=== PATIENT | male | born 1985 | race Caucasian/White ===

== ENCOUNTER 2020-03-12 14:44 | Emergency (ER) | payer MEDICAID ==
[~2020-03-12] VITALS: Ht 177.8 cm; Wt 164.0 kg
[2020-03-12 15:51] LABS: BASOPHILS # (AUTO) 0.02 x10^3/uL (0-0.1); BASOPHILS % (AUTO) 0 % (0-1); EOSINOPHILS # (AUTO) 0.16 x10^3/uL (0-0.4); EOSINOPHILS % (AUTO) 2 % (1-7); LYMPHOCYTES # (AUTO) 1.43 x10^3/uL (1-3.4); LYMPHOCYTES % (AUTO) 16 % (22-44); MD NO; MEAN CORPUSCULAR HEMOGLOBIN 28.8 pg (27.5-34.5); MEAN CORPUSCULAR HGB CONC 31.8 g/dL (33.2-36.2); MEAN CORPUSCULAR VOLUME 90.8 fL (81-97); MEAN PLATELET VOLUME 8.4 fL (7.4-10.4); MONOCYTES # (AUTO) 0.93 x10^3/uL (0.2-0.8); MONOCYTES % (AUTO) 10 % (2-9); NEUTROPHILS # (AUTO) 6.41 x10^3/uL (1.8-6.8); NEUTROPHILS % (AUTO) 72 % (42-75); PLATELET COUNT 243 x10^3/uL (130-400); RED BLOOD COUNT 5.37 x10^6/uL (4.38-5.82)
[2020-03-12] MEDS ORDERED: SODIUM CHLORIDE FLUSH 10ML SYR IVF ONE (16:00)
[2020-03-12 16:02] LABS: ALBUMIN 2.6 g/dL (3.4-5.0); ANION GAP 7 mmol/L (5-15); CALCIUM 8.5 mg/dL (8.5-10.1); CHLORIDE 99 mmol/L (98-107)
[2020-03-12 16:07] LABS: ALANINE AMINOTRANSFERASE 25 U/L (12-78); ALKALINE PHOSPHATASE 150 U/L (45-117); BILIRUBIN,TOTAL 0.9 mg/dL (0.2-1.0); TOTAL PROTEIN 6.8 g/dL (6.4-8.2)
--- NOTE | 2020-03-12 16:15 | NUR ---
BILAT LEGS PAINFUL AND SWOLLEN X 1 MONTH. STARTED WITH RIGHT FOOT, SPREAD TO LEFT FOOT, THEN TRAVELED UP BILAT LEGS. PRIMARY CARE SENT PT HERE. DENIED ANY MEDICAL HX. REPIORTS DRINKING 4 BEERS A DAY. MOTHER AT BEDSIDE. PT IN BED WITH CONT SPO2, BP Q 30 MIN, SIDE RAILS UP X2, CALL LIGHT IN REACH. WENT OVER PLAN OF CARE FROM ORDER LIST, AGREES TO PLAN. US/XRAY DONE, BLOOD SENT TO LAB.
[2020-03-12] MEDS ORDERED: FUROSEMIDE 40 MG/4 ML IV ONE (16:30)
[2020-03-12] MEDS ORDERED: FUROSEMIDE 40 MG/4 ML ONE (16:57)
[2020-03-12 17:42] VITALS: BP 135/74
== END 2020-03-12 17:47 | disposition home or self-care (01) ==
LOC: ED 16:02
DX: R60.0 Localized edema (principal); I10 Essential (primary) hypertension; R73.09 Other abnormal glucose; R79.89 Other specified abnormal findings of blood chemistry; R10.9 Unspecified abdominal pain; R16.1 Splenomegaly, not elsewhere classified; R09.02 Hypoxemia; F17.290 Nicotine dependence, other tobacco product, uncomplicated
CPT/HCPCS: 36415; 71046; 76700; 80053; 83880; 85025; 93005; 96374; 99285; 99406; J1940

== ENCOUNTER 2020-03-23 14:48 | Inpatient (IN) | payer MEDICAID ==
[~2020-03-23] VITALS: Ht 177.8 cm; Wt 146.1 kg
[~2020-03-23 14:48] MED LIST: MIDAZOLAM 1 MG/ML, 5ML ONE; NALOXONE 0.4 MG/ML, 1ML ONE; NALOXONE 1 MG/ML, 2ML ONE; SUCCINYLCHOLINE 20 MG/ML, 10ML ONE
[2020-03-23] MEDS ORDERED: FURO40TA6 PO (15:00)
--- NOTE | 2020-03-23 15:04 | NUR ---
PULSE OX 80% RA. PT DENIES RECENT FEVER, COUGH, UTI SX, COVID EXPOSURE, COVID TESTING, LUNG PROBLEMS. O2 WILL BE APPLIED & TITRATED. PT REPORTS TESTICULAR SWELLING. DENIES STD, RECENT SEXUAL ACTIVITY. PER MOM, PT WAS HERE LAST WEEK FOR FLUID RETENTION.
[2020-03-23] MEDS ORDERED: DIPH25CA61 PO (15:29)
[2020-03-23] MEDS ORDERED: FAMO10TA31 PO (15:29)
[2020-03-23 15:41] LABS: BASOPHILS # (AUTO) 0.06 x10^3/uL (0-0.1); BASOPHILS % (AUTO) 1 % (0-1); EOSINOPHILS # (AUTO) 0.09 x10^3/uL (0-0.4); EOSINOPHILS % (AUTO) 1 % (1-7); LYMPHOCYTES # (AUTO) 1.04 x10^3/uL (1-3.4); LYMPHOCYTES % (AUTO) 11 % (22-44); MD NO; MEAN CORPUSCULAR HEMOGLOBIN 28.1 pg (27.5-34.5); MEAN CORPUSCULAR HGB CONC 31.4 g/dL (33.2-36.2); MEAN CORPUSCULAR VOLUME 89.5 fL (81-97); MEAN PLATELET VOLUME 8.6 fL (7.4-10.4); MONOCYTES # (AUTO) 1.05 x10^3/uL (0.2-0.8); MONOCYTES % (AUTO) 11 % (2-9); NEUTROPHILS # (AUTO) 7.11 x10^3/uL (1.8-6.8); NEUTROPHILS % (AUTO) 76 % (42-75); PLATELET COUNT 284 x10^3/uL (130-400); RED BLOOD COUNT 5.16 x10^6/uL (4.38-5.82); RED CELL DISTRIBUTION WIDTH 16.3 % (9.4-14.8)
[2020-03-23 15:47] LABS: ALANINE AMINOTRANSFERASE 25 U/L (12-78); ALBUMIN 2.5 g/dL (3.4-5.0); ANION GAP 6 mmol/L (5-15); CALCIUM 7.9 mg/dL (8.5-10.1); CHLORIDE 98 mmol/L (98-107); INTERNATIONAL NORMALIZED RATIO 1.33 (0.93-1.1); PROTHROMBIN TIME 14.1 Seconds (9.6-11.5)
[2020-03-23 15:49] LABS: ALKALINE PHOSPHATASE 132 U/L (45-117); BILIRUBIN,TOTAL 0.6 mg/dL (0.2-1.0); TOTAL PROTEIN 6.4 g/dL (6.4-8.2)
[2020-03-23] MEDS ORDERED: FUROSEMIDE 40 MG/4 ML IV ONE (16:00)
[2020-03-23] MEDS ORDERED: FUROSEMIDE 40 MG/4 ML ONE (16:14)
--- NOTE | 2020-03-23 17:10 | NUR ---
LASIX GIVEN PER EMAR
--- NOTE | 2020-03-23 17:12 | NUR ---
PT REPORT TO JESSIE KAISER RN.
[2020-03-23] MEDS ORDERED: SODIUM CHLORIDE FLUSH 10ML SYR IVF PRN (17:30)
--- NOTE | 2020-03-23 17:50 | NUR ---
PER AWILDA RN, PT AMBULATORY TO & FROM [facility] W/OUT INCIDENT; PT WAS ABLE TO VOID.
[2020-03-23] MEDS ORDERED: ENOXAPARIN 40 MG/0.4 ML ONE (18:18)
[2020-03-23] MEDS ORDERED: NICOTINE 7 MG/24 HR PATCH.TD24 ONE (18:18)
[2020-03-23] MEDS: NICOTINE 7 MG/24 HR PATCH.TD24 TD SCH (18:20)
[2020-03-23] MEDS: ENOXAPARIN 40 MG/0.4 ML SQ SCH (18:22)
--- NOTE | 2020-03-23 18:22 | NUR ---
LOVENOX GIVEN PER EMAR. PT REFUSED NICOTINE PATCH, AT THIS TIME.
--- NOTE | 2020-03-23 18:24 | NUR ---
O2 SAT 84% RA. O2 2LNC APPLIED. 400ML URINE IN URINAL.
--- NOTE | 2020-03-23 19:36 | NUR ---
PT REPORT TO NAYANA ALLAN FOR ROOM 449. PER SANJANA, BARIATRIC BED HAS BEEN REQUESTED, BUT NOT YET RECEIVED. FLOOR WILL NOTIFY ED WHEN ROOM IS READY.
--- NOTE | 2020-03-23 20:07 | NUR ---
CALLED FLOOR; PER FABRIZIO, BARIATRIC BED HAS NOT BEEN RECEIVED YET; ETA UNKNOWN.
[2020-03-23] MEDS: IBUPROFEN 600 MG TABLET PO PRN (22:20)
[2020-03-24 02:22] VITALS: BP 134/79
[2020-03-24] MEDS ORDERED: OXYcodone IR 5MG TABLET ONE (02:44)
[2020-03-24] MEDS ORDERED: morphine SULFATE 10 MG/ML, 1ML ONE (02:45)
[2020-03-24] MEDS: OXYcodone IR 5MG TABLET PO PRN ×2 (02:49→17:23)
[2020-03-24] MEDS ORDERED: MORPHINE SULFATE 4 MG/ML, 1ML IVPush PRN (03:00)
[2020-03-24] MEDS ORDERED: morphine SULFATE 10 MG/ML, 1ML IVPush PRN (03:19)
[2020-03-24 04:15] LABS: ALBUMIN 2.4 g/dL (3.4-5.0); ANION GAP 6 mmol/L (5-15); CALCIUM 7.9 mg/dL (8.5-10.1); CHLORIDE 98 mmol/L (98-107)
[2020-03-24 04:18] LABS: ALANINE AMINOTRANSFERASE 24 U/L (12-78); ALKALINE PHOSPHATASE 129 U/L (45-117); BILIRUBIN,TOTAL 0.6 mg/dL (0.2-1.0); CREATININE 0.77 mg/dL (0.7-1.3); TOTAL PROTEIN 6.5 g/dL (6.4-8.2)
[2020-03-24 07:46] VITALS: BP 125/76
[2020-03-24 07:54] VITALS: BP 125/76
[2020-03-24] MEDS: FUROSEMIDE 40 MG/4 ML IV SCH ×2 (08:23→17:25)
[2020-03-24] MEDS: SENNA/DOCUSATE TABLET PO SCH (08:24)
[2020-03-24] MEDS: FAMOTIDINE 10 MG TAB PO SCH (08:24)
[2020-03-24 12:55] VITALS: BP 146/99
[2020-03-24] MEDS: ENOXAPARIN 40 MG/0.4 ML SQ SCH (17:25)
[2020-03-24] MEDS: NICOTINE 7 MG/24 HR PATCH.TD24 TD SCH (17:26)
[2020-03-24 18:52] LABS: MICROSCOPIC AUTO
[2020-03-24 20:40] VITALS: BP 144/94
[2020-03-24 20:52] VITALS: BP 160/109
[2020-03-24] MEDS ORDERED: NALOXONE 0.4 MG/ML, 1ML IVPush PRN (21:00)
[2020-03-24] MEDS ORDERED: NALOXONE 0.4 MG/ML, 1ML IVPush ONE (21:30)
[2020-03-24 21:46] LABS: MEAN CORPUSCULAR HEMOGLOBIN 27.8 pg (27.5-34.5); MEAN CORPUSCULAR VOLUME 92.5 fL (81-97); MEAN PLATELET VOLUME 7.9 fL (7.4-10.4); PLATELET COUNT 292 x10^3/uL (130-400); RED BLOOD COUNT 5.56 x10^6/uL (4.38-5.82)
[2020-03-24 21:56] LABS: ALANINE AMINOTRANSFERASE 26 U/L (12-78); ANION GAP 5 mmol/L (5-15); CALCIUM 8.4 mg/dL (8.5-10.1); CHLORIDE 98 mmol/L (98-107); CREATININE 0.82 mg/dL (0.7-1.3)
[2020-03-24 22:01] LABS: ALKALINE PHOSPHATASE 158 U/L (45-117); BILIRUBIN,TOTAL 0.5 mg/dL (0.2-1.0); TOTAL PROTEIN 7.8 g/dL (6.4-8.2); TROPONIN I 0.018 ng/mL (0.000-0.045)
[2020-03-24 22:09] LABS: BASOPHILS # (AUTO) 0.03 x10^3/uL (0-0.1); BASOPHILS % (AUTO) 0 % (0-1); EOSINOPHILS % (AUTO) 2 % (1-7); LYMPHOCYTES % (AUTO) 8 % (22-44); MD SCAN; MONOCYTES # (AUTO) 0.75 x10^3/uL (0.2-0.8); MONOCYTES % (AUTO) 7 % (2-9); NEUTROPHILS # (AUTO) 9.75 x10^3/uL (1.8-6.8); NEUTROPHILS % (AUTO) 84 % (42-75)
[2020-03-24 22:13] LABS: CHOL/HDL RATIO 5.4; LDL/HDL RATIO 3.3 (0.5-3.0)
[2020-03-24] MEDS ORDERED: NOREPINEPHRINE 8 MG in SODIUM CHLORIDE 0.9% 242 ML IV PRN (22:41)
[2020-03-24] MEDS ORDERED: GLUCAGON 1 MG IM PRN (23:00)
[2020-03-24] MEDS ORDERED: DEXTROSE 50%, 50ML SYRINGE IVPush PRN (23:00)
[2020-03-24] MEDS: ALBUTEROL/IPRATROPIUM 2.5MG/0.5MG, 3 ML INLINE SCH (23:00)
[2020-03-24] MEDS ORDERED: DEXTROSE 4 GM TAB.CHEW PO PRN (23:00)
[2020-03-24] MEDS ORDERED: SENNA 176 MG/5 ML ORAL SOL NG PRN (23:00)
[2020-03-24] MEDS ORDERED: LIDOCAINE-MPF 1%, 2ML ENDO PRN (23:00)
[2020-03-24] MEDS ORDERED: SENNA/DOCUSATE TABLET NG PRN (23:00)
[2020-03-24] MEDS ORDERED: BISACODYL 10 MG SUPP PR PRN (23:00)
[2020-03-24] MEDS ORDERED: PHARMACY MAY ADJ FOR RENAL FX MC SCH (23:00)
[2020-03-24] MEDS: DEXMEDETOMIDINE 400 MCG in SODIUM CHLORIDE 0.9% 96 ML IV PRN (23:09)
[2020-03-24] MEDS ORDERED: FUROSEMIDE 40 MG/4 ML IV ONE (23:30)
[2020-03-24] MEDS ORDERED: INSULIN GLARGINE 100 UNITS/ML, PEN SQ-INSULIN SCH (23:30)
[2020-03-24] MEDS: SODIUM CHLORIDE FLUSH 10ML SYR IVF SCH (23:51)
[2020-03-25] MEDS ORDERED: MIDAZOLAM 1 MG/ML, 2ML IVPush ONE
[2020-03-25] MEDS ORDERED: SUCCINYLCHOLINE 20 MG/ML, 10ML IVPush ONE
[2020-03-25] MEDS: methylPREDNISolone SOD SUCC 125 MG/2 ML IVPush SCH ×4 (00:07→22:14)
[2020-03-25] MEDS: MIDAZOLAM 1 MG/ML, 2ML IVPush PRN ×3 (00:19→04:57)
[2020-03-25 00:42] LABS: TROPONIN I 0.021 ng/mL (0.000-0.045)
[2020-03-25] MEDS: DEXMEDETOMIDINE 400 MCG in SODIUM CHLORIDE 0.9% 96 ML IV PRN (02:00)
[2020-03-25] MEDS: ALBUTEROL/IPRATROPIUM 2.5MG/0.5MG, 3 ML INLINE SCH ×6 (02:31→22:00)
[2020-03-25] MEDS ORDERED: OMNIPAQUE 350 MG/ML, 100ML BOTTLE ONE (03:43)
[2020-03-25 04:00] VITALS: BP 132/81
[2020-03-25 04:40] LABS: MEAN CORPUSCULAR HEMOGLOBIN 27.9 pg (27.5-34.5); MEAN CORPUSCULAR HGB CONC 30.6 g/dL (33.2-36.2); MEAN PLATELET VOLUME 8.6 fL (7.4-10.4); PLATELET COUNT 269 x10^3/uL (130-400); RED BLOOD COUNT 5.64 x10^6/uL (4.38-5.82); RED CELL DISTRIBUTION WIDTH 16.1 % (9.4-14.8)
[2020-03-25 04:50] LABS: ANION GAP 6 mmol/L (5-15); CALCIUM 8.2 mg/dL (8.5-10.1); CHLORIDE 99 mmol/L (98-107)
[2020-03-25 04:55] LABS: CREATININE 0.84 mg/dL (0.7-1.3); TROPONIN I 0.018 ng/mL (0.000-0.045)
[2020-03-25] MEDS: DEXMEDETOMIDINE 1,000 MCG in SODIUM CHLORIDE 0.9% 240 ML IV PRN ×2 (05:07→08:49)
[2020-03-25 05:47] LABS: BASOPHILS # (AUTO) 0.09 x10^3/uL (0-0.1); BASOPHILS % (AUTO) 1 % (0-1); EOSINOPHILS # (AUTO) 0.01 x10^3/uL (0-0.4); EOSINOPHILS % (AUTO) 0 % (1-7); LYMPHOCYTES # (AUTO) 0.47 x10^3/uL (1-3.4); LYMPHOCYTES % (AUTO) 5 % (22-44); MD SCAN; MONOCYTES # (AUTO) 0.18 x10^3/uL (0.2-0.8); MONOCYTES % (AUTO) 2 % (2-9); NEUTROPHILS # (AUTO) 8.17 x10^3/uL (1.8-6.8); NEUTROPHILS % (AUTO) 92 % (42-75)
[2020-03-25] MEDS: IBUPROFEN 600 MG TABLET PO PRN (06:13)
[2020-03-25] MEDS ORDERED: INSULIN LISPRO 100 UNITS/ML, PEN SQ-INSULIN SCH (07:00)
[2020-03-25] MEDS: PIPERACILLIN/TAZO/PMX 4.5GM 100 ML IV SCH ×3 (08:25→19:39)
[2020-03-25] MEDS: LOSARTAN 25MG TABLET PO SCH (08:37)
[2020-03-25] MEDS: SODIUM CHLORIDE FLUSH 10ML SYR IVF SCH ×4 (08:37→20:46)
[2020-03-25] MEDS: FUROSEMIDE 40 MG/4 ML IV SCH ×2 (08:37→17:30)
[2020-03-25] MEDS: FAMOTIDINE 10 MG TAB PO SCH (08:38)
[2020-03-25] MEDS: SENNA/DOCUSATE TABLET PO SCH (08:39)
[2020-03-25] MEDS: PROPOFOL 100 ML IV PRN ×6 (10:50→22:13)
[2020-03-25 13:13] LABS: ANION GAP 9 mmol/L (5-15); CALCIUM 8.4 mg/dL (8.5-10.1); CHLORIDE 101 mmol/L (98-107); CREATININE 1.06 mg/dL (0.7-1.3)
[2020-03-25] MEDS: INSULIN LISPRO 100 UNITS/ML, PEN SQ-INSULIN SCH ×2 (14:58→20:46)
[2020-03-25] MEDS: NICOTINE 7 MG/24 HR PATCH.TD24 TD SCH (15:48)
[2020-03-25] MEDS: ENOXAPARIN 40 MG/0.4 ML SQ SCH (17:30)
[2020-03-25] MEDS ORDERED: INSULIN GLARGINE 100 UNITS/ML, PEN SQ-INSULIN SCH (21:00)
[2020-03-25] MEDS: FENTANYL PF 100 MCG/2ML IVPush PRN (22:46)
[2020-03-26] MEDS: PROPOFOL 100 ML IV PRN ×11 (00:20→22:06)
[2020-03-26] MEDS: PIPERACILLIN/TAZO/PMX 4.5GM 100 ML IV SCH ×4 (02:08→20:23)
[2020-03-26] MEDS: INSULIN LISPRO 100 UNITS/ML, PEN SQ-INSULIN SCH ×4 (02:18→20:24)
[2020-03-26] MEDS: ALBUTEROL/IPRATROPIUM 2.5MG/0.5MG, 3 ML INLINE SCH ×6 (02:26→22:28)
[2020-03-26 04:00] VITALS: BP 125/60
[2020-03-26 05:04] LABS: MEAN CORPUSCULAR HEMOGLOBIN 27.7 pg (27.5-34.5); MEAN CORPUSCULAR HGB CONC 31.1 g/dL (33.2-36.2); MEAN PLATELET VOLUME 8.5 fL (7.4-10.4); PLATELET COUNT 257 x10^3/uL (130-400); RED BLOOD COUNT 5.35 x10^6/uL (4.38-5.82); RED CELL DISTRIBUTION WIDTH 16.6 % (9.4-14.8)
[2020-03-26 05:13] LABS: ANION GAP 5 mmol/L (5-15); CALCIUM 8.5 mg/dL (8.5-10.1); CHLORIDE 101 mmol/L (98-107); CREATININE 1.01 mg/dL (0.7-1.3)
[2020-03-26 05:34] LABS: MD YES
[2020-03-26 05:41] LABS: <PLATELET ESTIMATE> ADEQUATE; <PLT MORPHOLOGY> NORMAL PLT MORPH; <RBC MORPHOLOGY> NORMAL; BANDS%(MANUAL) 1 % (0-7); LYMPH#(MANUAL) 0.69 x10^3/uL (1-3.4); LYMPHS% (MANUAL) 7 % (22-44); MONOS#(MANUAL) 0.69 x10^3/uL (0.3-2.7); MONOS% (MANUAL) 7 % (2-9); NRBC % (MANUAL) 1 % (0-1); SEG#(MANUAL) 8.42 x10^3/uL (1.8-6.8); SEGS% (MANUAL) 85 % (42-75)
[2020-03-26 07:08] LABS: FIO2 80 %
[2020-03-26] MEDS: FUROSEMIDE 40 MG/4 ML IV SCH ×2 (08:54→17:37)
[2020-03-26] MEDS: SODIUM CHLORIDE FLUSH 10ML SYR IVF SCH ×4 (09:00→20:23)
[2020-03-26] MEDS: SENNA/DOCUSATE TABLET PO SCH (09:26)
[2020-03-26] MEDS: FAMOTIDINE 20 MG TABLET PO SCH (09:26)
[2020-03-26] MEDS: LOSARTAN 25MG TABLET PO SCH (09:27)
[2020-03-26] MEDS: FENTANYL PF 100 MCG/2ML IVPush PRN (09:49)
[2020-03-26] MEDS: OXYcodone IR 5MG TABLET PO PRN (11:10)
[2020-03-26] MEDS: methylPREDNISolone SOD SUCC 125 MG/2 ML IVPush SCH ×2 (11:10→23:51)
[2020-03-26] MEDS: THIAMINE 100MG TABLET PO SCH (11:11)
[2020-03-26] MEDS: ENOXAPARIN 40 MG/0.4 ML SQ SCH (17:37)
[2020-03-26] MEDS: NICOTINE 7 MG/24 HR PATCH.TD24 TD SCH (17:37)
[2020-03-26] MEDS ORDERED: INSULIN GLARGINE 100 UNITS/ML, PEN SQ-INSULIN SCH ×2 (21:00)
[2020-03-27] MEDS: PROPOFOL 100 ML IV PRN ×8 (00:16→23:25)
[2020-03-27] MEDS: PIPERACILLIN/TAZO/PMX 4.5GM 100 ML IV SCH ×4 (01:40→20:04)
[2020-03-27] MEDS: FENTANYL PF 100 MCG/2ML IVPush PRN (02:19)
[2020-03-27] MEDS: INSULIN LISPRO 100 UNITS/ML, PEN SQ-INSULIN SCH ×4 (02:23→21:11)
[2020-03-27] MEDS: ALBUTEROL/IPRATROPIUM 2.5MG/0.5MG, 3 ML INLINE SCH ×6 (02:27→22:21)
[2020-03-27] MEDS: OXYcodone IR 5MG TABLET PO PRN ×3 (04:04→20:10)
[2020-03-27 04:41] LABS: ANION GAP 7 mmol/L (5-15); CALCIUM 8.3 mg/dL (8.5-10.1); CHLORIDE 101 mmol/L (98-107); CREATININE 0.81 mg/dL (0.7-1.3); TRIGLYCERIDES 241 mg/dL (50-200)
[2020-03-27 04:53] LABS: MEAN CORPUSCULAR HGB CONC 31.2 g/dL (33.2-36.2); MEAN CORPUSCULAR VOLUME 89.8 fL (81-97); MEAN PLATELET VOLUME 8.2 fL (7.4-10.4); PLATELET COUNT 235 x10^3/uL (130-400); RED BLOOD COUNT 5.42 x10^6/uL (4.38-5.82); RED CELL DISTRIBUTION WIDTH 16.5 % (9.4-14.8)
[2020-03-27 05:00] VITALS: BP 151/94
[2020-03-27 05:50] LABS: BASOPHILS # (AUTO) 0.04 x10^3/uL (0-0.1); BASOPHILS % (AUTO) 1 % (0-1); EOSINOPHILS % (AUTO) 0 % (1-7); LYMPHOCYTES # (AUTO) 0.45 x10^3/uL (1-3.4); LYMPHOCYTES % (AUTO) 6 % (22-44); MD SCAN; MONOCYTES # (AUTO) 0.48 x10^3/uL (0.2-0.8); MONOCYTES % (AUTO) 6 % (2-9); NEUTROPHILS # (AUTO) 7.01 x10^3/uL (1.8-6.8); NEUTROPHILS % (AUTO) 88 % (42-75)
[2020-03-27] MEDS: FUROSEMIDE 40 MG/4 ML IV SCH ×2 (08:47→15:46)
[2020-03-27] MEDS: LOSARTAN 25MG TABLET PO SCH (08:48)
[2020-03-27] MEDS: THIAMINE 100MG TABLET PO SCH (08:48)
[2020-03-27] MEDS: SENNA/DOCUSATE TABLET PO SCH (08:48)
[2020-03-27] MEDS: FAMOTIDINE 20 MG TABLET PO SCH (08:48)
[2020-03-27] MEDS: SODIUM CHLORIDE FLUSH 10ML SYR IVF SCH ×4 (08:49→21:00)
[2020-03-27] MEDS: methylPREDNISolone SOD SUCC 125 MG/2 ML IVPush SCH ×2 (11:44→22:48)
[2020-03-27] MEDS: LACTULOSE 20 GM/30 ML UDC NG PRN (11:44)
[2020-03-27] MEDS ORDERED: LABETALOL 5MG/ML, 20ML IVPush PRN (15:00)
[2020-03-27] MEDS ORDERED: hydrALAzine 20 MG/ML, 1ML IVPush PRN (15:00)
[2020-03-27] MEDS: LABETALOL 5MG/ML, 20ML IVPush PRN (15:44)
[2020-03-27] MEDS: ENOXAPARIN 40 MG/0.4 ML SQ SCH (18:07)
[2020-03-27] MEDS: NICOTINE 7 MG/24 HR PATCH.TD24 TD SCH (18:07)
[2020-03-27] MEDS ORDERED: INSULIN GLARGINE 100 UNITS/ML, PEN SQ-INSULIN SCH (21:00)
[2020-03-28] MEDS: FUROSEMIDE 40 MG/4 ML IV SCH ×3 (01:00→17:16)
[2020-03-28] MEDS: OXYcodone IR 5MG TABLET PO PRN ×4 (01:02→23:09)
[2020-03-28] MEDS: PIPERACILLIN/TAZO/PMX 4.5GM 100 ML IV SCH ×3 (01:53→15:23)
[2020-03-28] MEDS: PROPOFOL 100 ML IV PRN ×2 (02:31→07:11)
[2020-03-28] MEDS: ALBUTEROL/IPRATROPIUM 2.5MG/0.5MG, 3 ML INLINE SCH ×3 (02:34→10:45)
[2020-03-28] MEDS: INSULIN LISPRO 100 UNITS/ML, PEN SQ-INSULIN SCH ×4 (03:24→21:00)
[2020-03-28] MEDS: LABETALOL 5MG/ML, 20ML IVPush PRN ×3 (03:32→17:16)
[2020-03-28 04:00] VITALS: BP 163/83
[2020-03-28 04:30] LABS: MEAN CORPUSCULAR HEMOGLOBIN 27.6 pg (27.5-34.5); MEAN CORPUSCULAR HGB CONC 30.8 g/dL (33.2-36.2); MEAN CORPUSCULAR VOLUME 89.4 fL (81-97); MEAN PLATELET VOLUME 8.3 fL (7.4-10.4); PLATELET COUNT 256 x10^3/uL (130-400); RED BLOOD COUNT 5.58 x10^6/uL (4.38-5.82); RED CELL DISTRIBUTION WIDTH 16.4 % (9.4-14.8)
[2020-03-28 04:35] LABS: ANION GAP 3 mmol/L (5-15); CALCIUM 8.6 mg/dL (8.5-10.1); CHLORIDE 101 mmol/L (98-107); CREATININE 0.85 mg/dL (0.7-1.3)
[2020-03-28 04:51] LABS: BASOPHILS # (AUTO) 0.02 x10^3/uL (0-0.1); BASOPHILS % (AUTO) 0 % (0-1); EOSINOPHILS # (AUTO) 0.02 x10^3/uL (0-0.4); EOSINOPHILS % (AUTO) 0 % (1-7); LYMPHOCYTES % (AUTO) 5 % (22-44); MD SCAN; MONOCYTES # (AUTO) 0.61 x10^3/uL (0.2-0.8); MONOCYTES % (AUTO) 8 % (2-9); NEUTROPHILS # (AUTO) 6.68 x10^3/uL (1.8-6.8); NEUTROPHILS % (AUTO) 87 % (42-75)
[2020-03-28] MEDS: LACTULOSE 20 GM/30 ML UDC NG PRN (09:30)
[2020-03-28] MEDS: THIAMINE 100MG TABLET PO SCH (09:30)
[2020-03-28] MEDS: ENOXAPARIN 30 MG/0.3 ML SQ SCH ×2 (09:30→21:43)
[2020-03-28] MEDS: SENNA/DOCUSATE TABLET PO SCH (09:31)
[2020-03-28] MEDS: LOSARTAN 50MG TABLET PO SCH (09:31)
[2020-03-28] MEDS: FAMOTIDINE 20 MG TABLET PO SCH (09:31)
[2020-03-28] MEDS: SODIUM CHLORIDE FLUSH 10ML SYR IVF SCH ×2 (09:32→21:42)
[2020-03-28] MEDS: ALBUTEROL HFA 90 MCG/SPRAY INH SCH ×2 (17:34→21:43)
[2020-03-28] MEDS: NICOTINE 7 MG/24 HR PATCH.TD24 TD SCH (17:35)
[2020-03-28] MEDS: DILTIAZEM 120 MG TABLET PO SCH (21:00)
[2020-03-28] MEDS ORDERED: DILTIAZEM 60 MG TABLET ONE (21:40)
[2020-03-28] MEDS: INSULIN GLARGINE 100 UNITS/ML, PEN SQ-INSULIN SCH (21:46)
[2020-03-29] MEDS: FUROSEMIDE 40 MG/4 ML IV SCH ×3 (00:59→16:41)
[2020-03-29] MEDS: INSULIN LISPRO 100 UNITS/ML, PEN SQ-INSULIN SCH ×5 (03:00→20:42)
[2020-03-29 04:43] LABS: BASOPHILS # (AUTO) 0.05 x10^3/uL (0-0.1); BASOPHILS % (AUTO) 1 % (0-1); EOSINOPHILS # (AUTO) 0.11 x10^3/uL (0-0.4); EOSINOPHILS % (AUTO) 1 % (1-7); LYMPHOCYTES # (AUTO) 1.54 x10^3/uL (1-3.4); LYMPHOCYTES % (AUTO) 17 % (22-44); MD NO; MEAN CORPUSCULAR HEMOGLOBIN 27.6 pg (27.5-34.5); MEAN CORPUSCULAR HGB CONC 31.1 g/dL (33.2-36.2); MEAN CORPUSCULAR VOLUME 88.9 fL (81-97); MEAN PLATELET VOLUME 8.5 fL (7.4-10.4); MONOCYTES # (AUTO) 0.77 x10^3/uL (0.2-0.8); MONOCYTES % (AUTO) 8 % (2-9); NEUTROPHILS % (AUTO) 73 % (42-75); PLATELET COUNT 212 x10^3/uL (130-400); RED CELL DISTRIBUTION WIDTH 16.7 % (9.4-14.8)
[2020-03-29 06:02] VITALS: BP 142/85
[2020-03-29] MEDS: ALBUTEROL HFA 90 MCG/SPRAY INH SCH ×4 (06:10→20:45)
[2020-03-29] MEDS: SENNA/DOCUSATE TABLET PO SCH (09:00)
[2020-03-29] MEDS: FAMOTIDINE 20 MG TABLET PO SCH (09:00)
[2020-03-29] MEDS: LOSARTAN 50MG TABLET PO SCH (09:01)
[2020-03-29] MEDS: THIAMINE 100MG TABLET PO SCH (09:01)
[2020-03-29] MEDS: DILTIAZEM 120 MG TABLET PO SCH ×2 (09:01→20:47)
[2020-03-29] MEDS: ENOXAPARIN 30 MG/0.3 ML SQ SCH ×2 (09:04→20:48)
[2020-03-29] MEDS: SODIUM CHLORIDE FLUSH 10ML SYR IVF SCH ×2 (09:05→20:47)
[2020-03-29] MEDS: OXYcodone IR 5MG TABLET PO PRN ×3 (10:55→23:38)
[2020-03-29] MEDS ORDERED: CEFTRIAXONE PMX 1GM/50ML 50 ML IV SCH (15:30)
[2020-03-29] MEDS: NICOTINE 7 MG/24 HR PATCH.TD24 TD SCH (17:25)
[2020-03-29] MEDS ORDERED: OXYcodone IR 5MG TABLET ONE (17:33)
[2020-03-29] MEDS ORDERED: DILTIAZEM 60 MG TABLET ONE (20:32)
[2020-03-29] MEDS: INSULIN GLARGINE 100 UNITS/ML, PEN SQ-INSULIN SCH (20:49)
[2020-03-30] MEDS: FUROSEMIDE 40 MG/4 ML IV SCH ×2 (00:52→15:58)
[2020-03-30 04:47] LABS: MEAN CORPUSCULAR HEMOGLOBIN 27.4 pg (27.5-34.5); MEAN CORPUSCULAR HGB CONC 31.1 g/dL (33.2-36.2); MEAN CORPUSCULAR VOLUME 88.4 fL (81-97); MEAN PLATELET VOLUME 8.4 fL (7.4-10.4); PLATELET COUNT 268 x10^3/uL (130-400); RED BLOOD COUNT 5.62 x10^6/uL (4.38-5.82); RED CELL DISTRIBUTION WIDTH 16.5 % (9.4-14.8)
[2020-03-30 04:49] VITALS: BP 138/81
[2020-03-30 04:52] LABS: ALANINE AMINOTRANSFERASE 30 U/L (12-78); ALBUMIN 2.7 g/dL (3.4-5.0); ANION GAP 4 mmol/L (5-15); CALCIUM 8.4 mg/dL (8.5-10.1); CHLORIDE 99 mmol/L (98-107); CREATININE 0.67 mg/dL (0.7-1.3)
[2020-03-30 04:54] LABS: ALKALINE PHOSPHATASE 77 U/L (45-117); TOTAL PROTEIN 6.5 g/dL (6.4-8.2)
[2020-03-30 05:55] LABS: BASOPHILS # (AUTO) 0.02 x10^3/uL (0-0.1); BASOPHILS % (AUTO) 0 % (0-1); EOSINOPHILS # (AUTO) 0.31 x10^3/uL (0-0.4); EOSINOPHILS % (AUTO) 3 % (1-7); LYMPHOCYTES # (AUTO) 1.28 x10^3/uL (1-3.4); LYMPHOCYTES % (AUTO) 14 % (22-44); MD SCAN; MONOCYTES # (AUTO) 0.56 x10^3/uL (0.2-0.8); MONOCYTES % (AUTO) 6 % (2-9); NEUTROPHILS # (AUTO) 6.82 x10^3/uL (1.8-6.8); NEUTROPHILS % (AUTO) 76 % (42-75)
[2020-03-30] MEDS: ALBUTEROL HFA 90 MCG/SPRAY INH SCH ×4 (06:38→20:33)
[2020-03-30] MEDS: INSULIN LISPRO 100 UNITS/ML, PEN SQ-INSULIN SCH ×4 (07:00→20:28)
[2020-03-30] MEDS: SODIUM CHLORIDE FLUSH 10ML SYR IVF SCH ×2 (08:50→20:36)
[2020-03-30] MEDS: OXYcodone IR 5MG TABLET PO PRN ×2 (08:50→15:57)
[2020-03-30] MEDS: SENNA/DOCUSATE TABLET PO SCH (08:51)
[2020-03-30] MEDS: LOSARTAN 50MG TABLET PO SCH (08:51)
[2020-03-30] MEDS: ENOXAPARIN 30 MG/0.3 ML SQ SCH ×2 (08:51→20:35)
[2020-03-30] MEDS: THIAMINE 100MG TABLET PO SCH (08:51)
[2020-03-30] MEDS: DILTIAZEM 120 MG TABLET PO SCH ×2 (08:51→20:35)
[2020-03-30] MEDS: FAMOTIDINE 20 MG TABLET PO SCH (08:51)
[2020-03-30] MEDS ORDERED: FUROSEMIDE 40 MG/4 ML IV SCH (12:00)
[2020-03-30 15:17] VITALS: BP 129/89
[2020-03-30 19:06] VITALS: BP 114/68
[2020-03-30] MEDS: NICOTINE 7 MG/24 HR PATCH.TD24 TD SCH (20:35)
[2020-03-30] MEDS: INSULIN GLARGINE 100 UNITS/ML, PEN SQ-INSULIN SCH (20:36)
[2020-03-31] MEDS: OXYcodone IR 5MG TABLET PO PRN ×4 (00:08→21:19)
[2020-03-31 00:26] VITALS: BP 124/76
[2020-03-31 05:21] LABS: CHLORIDE 99 mmol/L (98-107)
[2020-03-31] MEDS: FUROSEMIDE 40 MG/4 ML IV SCH ×2 (05:21→17:19)
[2020-03-31 05:22] LABS: MEAN CORPUSCULAR HEMOGLOBIN 27.3 pg (27.5-34.5); MEAN CORPUSCULAR HGB CONC 30.7 g/dL (33.2-36.2); MEAN PLATELET VOLUME 8.9 fL (7.4-10.4); PLATELET COUNT 262 x10^3/uL (130-400); RED BLOOD COUNT 5.51 x10^6/uL (4.38-5.82); RED CELL DISTRIBUTION WIDTH 16.2 % (9.4-14.8)
[2020-03-31 05:25] LABS: ANION GAP 4 mmol/L (5-15); CALCIUM 8.9 mg/dL (8.5-10.1); CREATININE 0.59 mg/dL (0.7-1.3)
[2020-03-31 05:54] LABS: BASOPHILS # (AUTO) 0.04 x10^3/uL (0-0.1); BASOPHILS % (AUTO) 0 % (0-1); EOSINOPHILS # (AUTO) 0.44 x10^3/uL (0-0.4); EOSINOPHILS % (AUTO) 4 % (1-7); LYMPHOCYTES % (AUTO) 13 % (22-44); MD SCAN; MONOCYTES # (AUTO) 0.78 x10^3/uL (0.2-0.8); MONOCYTES % (AUTO) 7 % (2-9); NEUTROPHILS # (AUTO) 7.93 x10^3/uL (1.8-6.8); NEUTROPHILS % (AUTO) 75 % (42-75)
[2020-03-31] MEDS: INSULIN LISPRO 100 UNITS/ML, PEN SQ-INSULIN SCH ×4 (08:06→21:20)
[2020-03-31 08:42] VITALS: BP 124/75
[2020-03-31] MEDS: SODIUM CHLORIDE FLUSH 10ML SYR IVF SCH ×2 (08:43→21:12)
[2020-03-31] MEDS: ALBUTEROL HFA 90 MCG/SPRAY INH SCH ×4 (08:43→21:18)
[2020-03-31] MEDS: ENOXAPARIN 30 MG/0.3 ML SQ SCH ×2 (08:44→21:14)
[2020-03-31] MEDS: DILTIAZEM 120 MG TABLET PO SCH ×2 (08:44→21:12)
[2020-03-31] MEDS: LOSARTAN 50MG TABLET PO SCH (08:44)
[2020-03-31] MEDS: SENNA/DOCUSATE TABLET PO SCH (08:44)
[2020-03-31] MEDS: THIAMINE 100MG TABLET PO SCH (08:44)
[2020-03-31] MEDS: FAMOTIDINE 20 MG TABLET PO SCH (08:44)
[2020-03-31 12:30] VITALS: BP 116/76
[2020-03-31 18:23] VITALS: BP 93/60
[2020-03-31] MEDS: NICOTINE 7 MG/24 HR PATCH.TD24 TD SCH (21:11)
[2020-03-31] MEDS: INSULIN GLARGINE 100 UNITS/ML, PEN SQ-INSULIN SCH (21:22)
[2020-04-01 00:35] VITALS: BP 112/67
[2020-04-01 05:07] LABS: ANION GAP 4 mmol/L (5-15); CALCIUM 8.6 mg/dL (8.5-10.1); CHLORIDE 101 mmol/L (98-107)
[2020-04-01] MEDS: FUROSEMIDE 40 MG/4 ML IV SCH (05:56)
[2020-04-01 06:10] LABS: BASOPHILS # (AUTO) 0.01 x10^3/uL (0-0.1); BASOPHILS % (AUTO) 0 % (0-1); EOSINOPHILS % (AUTO) 5 % (1-7); LYMPHOCYTES % (AUTO) 12 % (22-44); MD NO; MEAN CORPUSCULAR HEMOGLOBIN 27.5 pg (27.5-34.5); MEAN CORPUSCULAR HGB CONC 31.2 g/dL (33.2-36.2); MEAN CORPUSCULAR VOLUME 88.1 fL (81-97); MEAN PLATELET VOLUME 9.1 fL (7.4-10.4); MONOCYTES # (AUTO) 0.97 x10^3/uL (0.2-0.8); MONOCYTES % (AUTO) 9 % (2-9); NEUTROPHILS # (AUTO) 7.77 x10^3/uL (1.8-6.8); NEUTROPHILS % (AUTO) 74 % (42-75); PLATELET COUNT 263 x10^3/uL (130-400); RED BLOOD COUNT 5.23 x10^6/uL (4.38-5.82); RED CELL DISTRIBUTION WIDTH 16.5 % (9.4-14.8)
[2020-04-01] MEDS: INSULIN LISPRO 100 UNITS/ML, PEN SQ-INSULIN SCH ×4 (07:43→22:10)
[2020-04-01] MEDS: DILTIAZEM 120 MG TABLET PO SCH ×2 (08:29→22:16)
[2020-04-01] MEDS: LOSARTAN 50MG TABLET PO SCH (08:29)
[2020-04-01] MEDS: FAMOTIDINE 20 MG TABLET PO SCH (08:29)
[2020-04-01] MEDS: ENOXAPARIN 30 MG/0.3 ML SQ SCH ×2 (08:29→22:06)
[2020-04-01 08:30] VITALS: BP 151/91
[2020-04-01] MEDS: SENNA/DOCUSATE TABLET PO SCH (08:30)
[2020-04-01] MEDS: THIAMINE 100MG TABLET PO SCH (08:30)
[2020-04-01] MEDS: SODIUM CHLORIDE FLUSH 10ML SYR IVF SCH ×2 (08:30→22:14)
[2020-04-01] MEDS: ACETAMINOPHEN 325 MG TABLET PO PRN (08:40)
[2020-04-01] MEDS: ALBUTEROL HFA 90 MCG/SPRAY INH SCH ×4 (08:42→22:05)
[2020-04-01] MEDS ORDERED: IBUPROFEN 200 MG TABLET ONE (10:55)
[2020-04-01] MEDS: IBUPROFEN 600 MG TABLET PO PRN (10:58)
[2020-04-01 12:34] VITALS: BP 127/75
[2020-04-01] MEDS: FUROSEMIDE 40 MG TABLET PO SCH (16:13)
[2020-04-01] MEDS: metFORMIN 500 MG TABLET PO SCH (17:35)
[2020-04-01 18:33] VITALS: BP 141/84
[2020-04-01] MEDS: INSULIN GLARGINE 100 UNITS/ML, PEN SQ-INSULIN SCH (22:14)
[2020-04-01] MEDS: NICOTINE 7 MG/24 HR PATCH.TD24 TD SCH (22:17)
[2020-04-02 00:06] VITALS: BP 129/84
[2020-04-02 05:23] LABS: MEAN CORPUSCULAR HEMOGLOBIN 27.7 pg (27.5-34.5); MEAN CORPUSCULAR HGB CONC 31.2 g/dL (33.2-36.2); MEAN CORPUSCULAR VOLUME 88.8 fL (81-97); MEAN PLATELET VOLUME 9.2 fL (7.4-10.4); PLATELET COUNT 277 x10^3/uL (130-400); RED BLOOD COUNT 5.21 x10^6/uL (4.38-5.82); RED CELL DISTRIBUTION WIDTH 16.5 % (9.4-14.8)
[2020-04-02 05:45] LABS: BASOPHILS # (AUTO) 0.01 x10^3/uL (0-0.1); BASOPHILS % (AUTO) 0 % (0-1); EOSINOPHILS # (AUTO) 0.35 x10^3/uL (0-0.4); EOSINOPHILS % (AUTO) 4 % (1-7); LYMPHOCYTES # (AUTO) 1.25 x10^3/uL (1-3.4); LYMPHOCYTES % (AUTO) 12 % (22-44); MD SCAN; MONOCYTES # (AUTO) 0.85 x10^3/uL (0.2-0.8); MONOCYTES % (AUTO) 8 % (2-9); NEUTROPHILS # (AUTO) 7.59 x10^3/uL (1.8-6.8); NEUTROPHILS % (AUTO) 76 % (42-75)
[2020-04-02] MEDS: ALBUTEROL HFA 90 MCG/SPRAY INH SCH ×3 (07:00→14:51)
[2020-04-02] MEDS: INSULIN LISPRO 100 UNITS/ML, PEN SQ-INSULIN SCH ×3 (07:00→15:59)
[2020-04-02 08:12] VITALS: BP 141/89
[2020-04-02] MEDS: ACETAMINOPHEN 325 MG TABLET PO PRN (08:17)
[2020-04-02] MEDS: FAMOTIDINE 20 MG TABLET PO SCH (08:17)
[2020-04-02] MEDS: ENOXAPARIN 30 MG/0.3 ML SQ SCH (08:17)
[2020-04-02] MEDS: LOSARTAN 50MG TABLET PO SCH (08:18)
[2020-04-02] MEDS: metFORMIN 500 MG TABLET PO SCH ×2 (08:18→16:26)
[2020-04-02] MEDS: FUROSEMIDE 40 MG TABLET PO SCH ×3 (08:18→19:32)
[2020-04-02] MEDS: DILTIAZEM 120 MG TABLET PO SCH ×2 (08:18→19:33)
[2020-04-02] MEDS: THIAMINE 100MG TABLET PO SCH (08:19)
[2020-04-02] MEDS: SENNA/DOCUSATE TABLET PO SCH ×2 (08:19→08:39)
[2020-04-02] MEDS: SODIUM CHLORIDE FLUSH 10ML SYR IVF SCH (08:20)
[2020-04-02 12:45] VITALS: BP 130/81
[2020-04-02] MEDS ORDERED: FURO40TA6 PO (14:09)
[2020-04-02] MEDS ORDERED: METF500T PO (14:09)
[2020-04-02] MEDS ORDERED: ALBU18HF INH (14:09)
[2020-04-02] MEDS ORDERED: DILT120T3 PO (14:09)
[2020-04-02] MEDS ORDERED: LOSA50TA2 PO (14:09)
== END 2020-04-02 20:47 | disposition home or self-care (01) | DRG 208 ==
LOC: ED 15:42 → EDIP 17:23 → 4NE 20:18 → CCU 03-24 21:47 → 5SO 03-30 15:10
PROVIDERS: ADMIT Family Medicine; ATTEND Family Medicine
PROC: 5A1945Z Respiratory Ventilation, 24-96 Consecutive Hours (ICD-10-PCS; principal; 2020-03-24)
PROC: 0BH17EZ Insertion of Endotracheal Airway into Trachea, Via Natural or Artificial Opening (ICD-10-PCS; 2020-03-24)
DX: J96.21 Acute and chronic respiratory failure with hypoxia (principal); J81.0 Acute pulmonary edema; E43 Unspecified severe protein-calorie malnutrition; E66.2 Morbid (severe) obesity with alveolar hypoventilation; E87.4 Mixed disorder of acid-base balance; F10.231 Alcohol dependence with withdrawal delirium; J98.11 Atelectasis; Z68.42 Body mass index [BMI] 45.0-49.9, adult; E11.9 Type 2 diabetes mellitus without complications; J96.22 Acute and chronic respiratory failure with hypercapnia; E86.9 Volume depletion, unspecified; E87.5 Hyperkalemia; E87.70 Fluid overload, unspecified; E88.09 Other disorders of plasma-protein metabolism, not elsewhere classified; F12.90 Cannabis use, unspecified, uncomplicated; F17.200 Nicotine dependence, unspecified, uncomplicated; G47.33 Obstructive sleep apnea (adult) (pediatric); I10 Essential (primary) hypertension; I27.29 Other secondary pulmonary hypertension; I27.81 Cor pulmonale (chronic); J45.909 Unspecified asthma, uncomplicated; K76.0 Fatty (change of) liver, not elsewhere classified; N50.89 Other specified disorders of the male genital organs; N28.9 Disorder of kidney and ureter, unspecified; M79.89 Other specified soft tissue disorders; R79.1 Abnormal coagulation profile; Z74.01 Bed confinement status; Z79.84 Long term (current) use of oral hypoglycemic drugs; Z79.899 Other long term (current) drug therapy; Z80.51 Family history of malignant neoplasm of kidney; Z82.49 Family history of ischemic heart disease and other diseases of the circulatory system
CPT/HCPCS: 36415; 36600; 71045; 71275; 74176; 80048; 80053; 80061; 81001; 82042; 82550; 82570; 82607; 82803; 82962; 83036; 83690; 83735; 84145; 84156; 84425; 84478; 84484; 85025; 85610; 85730; 87040; 87070; 87081; 87181; 87184; 87205; 93005; 93306; 94002; 94003; 94150; 94640; 94660; 94664; 99285; G0378; J0696; J1650; J1940; J2250; J2310; J2543; J2704; J3010; Q9967; J0330; J0360; J1815; J2930; J7050